=== PATIENT | male | born 1985 | race American Indian/Alaskan Native ===

== ENCOUNTER 2016-12-11 18:01 | Emergency (ER) | payer OTHER ==
[2016-12-11 18:12] VITALS: O2SAT 100
--- NOTE | 2016-12-11 18:39 | C.PDOC ---
History Of Present Illness 31 y/o male presents to the ED for evaluation of lower back pain which has been occurring in intermittent episodes for around 2 weeks. Patient also reports nasal congestion, sore throat, and subjective fever. Patient denies flank pain, abdominal pain, dysuria, urinary/bowel incontinence, upper/lower extremity numbness/weakness. Time Seen by Provider: 12/11/16 18:26 Chief Complaint (Nursing): Back Pain History Per: Patient History/Exam Limitations: no limitations Onset/Duration Of Symptoms: Intermittent Episodes (2 weeks ) Current Symptoms Are (Timing): Still Present Quality Of Discomfort: "Pain" Previous Symptoms: Back Pain Associated Symptoms: denies: Incontinence, New Weakness, New Numbness Additional History Per: Patient Past Medical History Reviewed: Historical Data, Nursing Documentation, Vital Signs Vital Signs: Last Vital Signs Temp 98.2 F 12/11/16 20:38 Pulse 93 H 12/11/16 20:38 Resp 16 12/11/16 20:38 BP 124/73 12/11/16 20:38 Pulse Ox 100 12/11/16 20:38 - Medical History PMH: No Chronic Diseases Surgical History: No Surg Hx Family History: States: Unknown Family Hx - Social History Hx Tobacco Use: Yes Hx Alcohol Use: Yes Hx Substance Use: No - Immunization History Hx Tetanus Toxoid Vaccination: No Hx Influenza Vaccination: No Hx Pneumococcal Vaccination: No Review Of Systems Constitutional: Positive for: Fever (subjective ). Negative for: Chills ENT: Positive for: Nose Congestion, Throat Pain Gastrointestinal: Negative for: Abdominal Pain Genitourinary: Negative for: Dysuria, Incontinence Musculoskeletal: Positive for: Back Pain (lower) Neurological: Negative for: Weakness, Numbness Physical Exam - Physical Exam Appears: Non-toxic, No Acute Distress Skin: Normal Color, Warm, Dry Head: Atraumatic, Normacephalic Eye(s): bilateral: Normal Inspection Ear(s): Bilateral: Normal Nose: Normal, No Discharge Oral Mucosa: Moist Throat: Normal, No Erythema, No Exudate Neck: Normal ROM, Supple Chest: Symmetrical Cardiovascular: Rhythm Regular, No Murmur Respiratory: Normal Breath Sounds, No Rales, No Rhonchi, No Wheezing Back: Vertebral Tenderness (LS spine ), Paraspinal Tenderness (LS spine ) Extremity: Normal ROM, Capillary Refill (less than 2 seconds ) Neurological/Psych: Oriented x3, Normal Speech, Normal Cognition Gait: Steady ED Course And Treatment O2 Sat by Pulse Oximetry: 100 (on RA) Pulse Ox Interpretation: Normal Progress Note: LS Spine AP/LAT and UA ordered and reviewed. UA results are unremarkable. Patient received Percocet PO, Toradol IM, Valium PO, and Lidoderm 5% TD. On reassessment, patient is resting comfortably, showing no signs of distress and reports an improvement in his symptoms. Patient is ambulatory in the ED without distress and is stable for discharge. Patient is informed his symptoms are likely indicative of musculoskeletal pain. Patient is given Rx and advised to follow up with his PMD within 1-2 days for further evaluation. Disposition - Disposition Disposition: HOME/ ROUTINE Disposition Time: 20:44 Condition: STABLE Additional Instructions: Follow up with your PMD within 1-2 days. Return to ED if feel worse. 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 - Scribe Statement The provider has reviewed the documentation as recorded by the Scribe (Chrissy Vera) All medical record entries made by the Scribe were at my direction and personally dictated by me. I have reviewed the chart and agree that the record accurately reflects my personal performance of the history, physical exam, medical decision making, and the department course for this patient. I have also personally directed, reviewed, and agree with the discharge instructions and disposition.
[2016-12-11] MEDS ORDERED: Lidocaine 5% Patch TD STA (18:41)
[2016-12-11] MEDS ORDERED: Oxycodone/Acetaminophen 5/325 mg Tab PO STA (18:41)
[2016-12-11] MEDS ORDERED: Oxycodone/Acetaminophen 5/325 mg Tab ONE (19:00)
[2016-12-11] MEDS ORDERED: Lidocaine 5% Patch TD ONE (19:01)
[2016-12-11 19:17] LABS: RBC URINE 6 /hpf (0-3); URINE BACTERIA FEW (<OCC); URINE BILIRUBIN NEGATIVE (NEGATIVE); URINE BLOOD NEGATIVE (NEGATIVE); URINE COLOR Yellow (YELLOW); URINE GLUCOSE (UA) NORMAL (Normal); URINE KETONE 1+ mg/dL (NEGATIVE); URINE LEUKOCYTE ESTERASE NEG Leu/uL (Negative); URINE PROTEIN NEGATIVE (NEGATIVE); WBC URINE < 1 /hpf (0-5)
[2016-12-11 20:38] VITALS: BP 124/73; PULSE 93; RESP 16; TEMP 98.2
--- NOTE | 2016-12-12 08:25 | RAD ---
PROCEDURE: Radiographs of the Lumbar Spine. HISTORY: back pain COMPARISON: No prior. FINDINGS: BONES: There is straightening of the normal lumbar lordosis No listhesis. No fracture. DISC SPACES: L5-S1 mild disc space narrowing. OTHER FINDINGS: None. IMPRESSION: Straightening of the normal lumbar lordosis consistent with muscle spasm and/or positioning. L5-S1 mild disc space narrowing. No fracture, subluxation or lytic lesion appreciated.
== END 2016-12-11 21:04 | disposition home or self-care (01) ==
LOC: C.ER 18:01
DX: M54.5 Low back pain (principal); J06.9 Acute upper respiratory infection, unspecified
CPT/HCPCS: 72100; 81001; 96372; 99284; J1885

== ENCOUNTER 2017-03-12 10:24 | Emergency (ER) | payer OTHER ==
--- NOTE | 2017-03-12 11:36 | C.PDOC ---
History Of Present Illness 32 y/o male c/o intermittent anterior chest pain and back pain x 2 days, started after sleeping flat on couch with no pillow, worse with flexion of head , no alleviating factors. pt reports he took a muscle relaxant today and a percocet yesterday with no relief. denies sob, no diaphoresis Time Seen by Provider: 03/12/17 11:06 Chief Complaint (Nursing): Back Pain History Per: Patient History/Exam Limitations: no limitations Onset/Duration Of Symptoms: Days (2) Current Symptoms Are (Timing): Still Present Associated Symptoms: denies: Nausea, Dyspnea, Diaphoresis, Syncope Exacerbating Factors: Other (flexion of neck) Alleviating Factors: None Past Medical History Reviewed: Historical Data, Nursing Documentation, Vital Signs Vital Signs: Last Vital Signs Temp 97.8 F 03/12/17 14:15 Pulse 69 03/12/17 14:15 Resp 16 03/12/17 14:15 BP 127/76 03/12/17 14:15 Pulse Ox 99 03/12/17 14:15 - Medical History PMH: No Chronic Diseases Family History: States: CAD (mother, stents) - Social History Hx Tobacco Use: Yes Hx Alcohol Use: Yes Hx Substance Use: No - Immunization History Hx Tetanus Toxoid Vaccination: No Hx Influenza Vaccination: No Hx Pneumococcal Vaccination: No Physical Exam - Physical Exam Appears: Non-toxic, No Acute Distress Skin: Normal Color, Warm, Dry Oral Mucosa: Moist Neck: Paracervical Tenderness (mild ) Chest: Symmetrical, No Deformity, No Tenderness (reproducible, to chest wall ) Cardiovascular: Rhythm Regular, No Murmur Respiratory: Normal Breath Sounds, No Rales, No Rhonchi, No Wheezing Extremity: Normal ROM, Capillary Refill (less than 2 seconds ) Neurological/Psych: Oriented x3, Normal Speech, Normal Cognition Gait: Steady ED Course And Treatment - Laboratory Results Result Diagrams: 03/12/17 11:44 03/12/17 11:44 ECG: Interpreted By Me, Viewed By Me ECG Rhythm: Sinus Rhythm Rate From EC O2 Sat by Pulse Oximetry: 100 Medical Decision Making Medical Decision Making: 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 pt reports pain decreased now, feels it mildly with rotation of head, ot appears well. no recent uri symptoms. pt to be discharged with follow up in medical cliinic and with alodize machine operator. pt understands and agrees to plan. Disposition Counseled Patient/Family Regarding: Studies Performed, Diagnosis, Need For Followup - Disposition Referrals: [facility] [Outside] Dilan Hwang MD [Staff Provider] - Disposition: HOME/ ROUTINE Disposition Time: 13:53 Condition: GOOD Additional Instructions: Please follow up in medical clinic and with Dr Hwang (alodize machine operator) in the next few days. Take Tylenol or Ibupforen for pain. Return to ER for any worse pain. shortness of breath or any other cocnerning symptms. Instructions: Noncardiac Chest Pain (ED) Forms: [facility] ([place] Islander), General Discharge Instructions - Clinical Impression Clinical Impression: Non-cardiac chest pain
[2017-03-12 11:54] LABS: BASO % 0.7 % (0.0-2.0); EOS # 0.2 K/uL (0.0-0.7); EOS % 2.8 % (0.0-4.0); HEMATOCRIT 45.1 % (35.0-51.0); LYMPH # 3.2 K/uL (1.0-4.3); LYMPH % 51.8 % (20.0-40.0); MEAN CELL VOLUME 88.7 fL (80.0-94.0); MEAN CORPUSCULAR HEMOGLOBIN 30.1 pg (27.0-31.0); MEAN CORPUSCULAR HGB CONC 33.9 g/dL (33.0-37.0); MEAN PLATELET VOLUME 7.7 fL (7.2-11.7); MONO # 0.4 K/uL (0.0-0.8); MONO % 6.8 % (0.0-10.0); WHITE BLOOD COUNT 6.2 K/uL (4.8-10.8)
[2017-03-12 11:57] LABS: URINE BILIRUBIN NEGATIVE (NEGATIVE); URINE BLOOD 1+ (NEGATIVE); URINE COLOR Yellow (YELLOW); URINE GLUCOSE (UA) NORMAL (Normal); URINE KETONE NEGATIVE (NEGATIVE); URINE LEUKOCYTE ESTERASE NEG Leu/uL (Negative); URINE PROTEIN NEGATIVE (NEGATIVE); URINE UROBILINOGEN NORMAL mg/dL (0.2-1.0); WBC URINE < 1 /hpf (0-5)
[2017-03-12 12:00] LABS: RBC URINE 2 /hpf (0-3)
--- NOTE | 2017-03-12 12:01 | RAD ---
HISTORY: chest pain COMPARISON: Chest x-ray performed 03/07/13 TECHNIQUE: Chest PA and lateral FINDINGS: LUNGS: Biapical pleural thickening. No focal consolidation. Please note that chest x-ray has limited sensitivity for the detection of pulmonary masses. PLEURA: No significant pleural effusion identified. No definite pneumothorax . CARDIOVASCULAR: Heart size appears within normal limits. OSSEOUS STRUCTURES: No acute osseous abnormality identified. VISUALIZED UPPER ABDOMEN: Unremarkable. OTHER FINDINGS: None. IMPRESSION: No focal consolidation, significant pleural effusion, or definite pneumothorax identified.
[2017-03-12 12:13] LABS: ALB/GLOB RATIO 1.6 (1.0-2.1); ALKALINE PHOSPHATASE 74 U/L (38-126); ALT/SGPT 33 U/L (21-72); AST/SGOT 26 U/L (17-59); BILIRUBIN,TOTAL 0.4 mg/dL (0.2-1.3); BLOOD UREA NITROGEN 10 mg/dL (9-20); CALCIUM 8.8 mg/dl (8.6-10.4); CARBON DIOXIDE 30 mmol/L (22-30); CHLORIDE 104 mmol/L (98-107); GFR AFRICAN-AMERICAN > 60; GLUCOSE,RANDOM 96 mg/dL (75-110); POTASSIUM 3.7 mmol/L (3.6-5.2); SODIUM 140 mmol/L (132-148)
[2017-03-12 14:45] VITALS: BP 127/76; PULSE 69; RESP 16; TEMP 97.8
[2017-03-12 16:47] VITALS: O2SAT 100
--- NOTE | 2017-03-13 22:21 | CARD ---
APPROVED REPORT EKG Measurement Heart [id number] <Conclusion> Normal sinus rhythm ST elevation, consider anterior injury or acute infarct ACUTE RI / STEMI Abnormal ECG
== END 2017-03-12 15:08 | disposition home or self-care (01) ==
LOC: C.ER 10:24
DX: R07.89 Other chest pain (principal)